=== PATIENT | male | born 1985 | race Caucasian/White ===

== ENCOUNTER 2017-06-29 14:11 | Emergency (ER) | payer MEDICAID ==
[~2017-06-29] VITALS: Ht 182.9 cm; Wt 80.0 kg
[~2017-06-29 14:11] MED LIST: BENZ100 PO; ZITH250T PO
[2017-06-29] MEDS ORDERED: IOHEXOL 350 MG/ML 10 ML VIAL (for RAD DIAG) IVCONTRAST ONE (14:12)
[2017-06-29 14:13] VITALS: BP 153/87; PULSE 87; RESP 16; TEMP 98.2; O2SAT 98
--- NOTE | 2017-06-29 14:23 | PD ---
Physical Exam Date Seen by Provider: Jun 29, 2017 Time Seen by Provider: 14:21 Narrative Pt presents c/o bilateral rib and flank pain for the last 2 weeks. No pain with respirations. VSS, awaiting bed placement. Data Data Last Documented VS Vital Signs Date Time Temp Pulse Resp B/P (MAP) Pulse Ox O2 Delivery O2 Flow Rate FiO2 06/29/17 14:13 98.2 87 16 153/87 (109) 98 MDM Supervised Visit with FRANCISCO: Tayler Wade Jun 29, 2017 14:23
--- NOTE | 2017-06-29 14:36 | PD ---
HPI . generalized abdominal pain/back pain Chief Complaint: Flank/Kidney Pain Time Seen by Provider: 14:25 Travel History International Travel<30 days: No Contact w/Intl Traveler<30days: No Traveled to known affect area: No History of Present Illness HPI 31- year old male presents to the ED complaining of right sided and left sided abdominal pain that radiates to his lower back for the past two weeks. The patient reports that his pain is worse on the right side than his left. The patient reports that he has chronic headaches and has been taking Ibuprofen, but reports that the ibuprofen has not helped with the abdominal pain. He reports the pain is worse with movement, and that eating does not affect his pain. He denies any nausea, vomiting, or diarrhea. The patient currently rates his pain as a 0/10. On exam he is pointing to his back. He says he thinks the pain is deep within his abdomen. PFSH Past Medical History High Cholesterol: Yes Diminished Hearing: No Immunizations Current: Yes Past Surgical History Tonsillectomy: Yes ("T&A") Social History Alcohol Use: Yes (OCCASIONALLY) Tobacco Use: No Substance Use: No Allergies-Medications (Allergen,Severity, Reaction): Coded Allergies: No Known Allergies (Verified , 06/29/17) Reported Meds & Prescriptions Reported Meds & Active Scripts Active No Active Prescriptions or Reported Medications Review of Systems General / Constitutional: No: Fever, Chills, Weight Gain, Weight Loss, Other Eyes: No: Diploplia, Blurred Vision, Photophobia, Drainage, Redness, Foreign Body Sensation, Pain, Tearing, Blind Spots, Visual changes, Blindness, Other HENT: Positive: Headaches, No: Vertigo, Lightheadedness, Sore Throat, Rhinitis , Rhinorrhea, Congestion, Nosebleed, Neck Stiffness, Neck Pain, Masses, Gingival Bleeding, Dental Difficulties, Ear Discharge, Earache, Other Cardiovascular: No: Chest Pain or Discomfort, Palpitations, Irregular Rhythm, Tachycardia, Diaphoresis, Syncope, Dyspnea on exertion, Varicosities, Edema, Cyanosis, Varicosities, Phlebitis, Claudication, Other Respiratory: No: Cough, Shortness of Breath, Wheezing, Sneezing, Orthopnea, Hemoptysis, Stridor, Night Sweats, Pleuritic Pain, Other Gastrointestinal: Positive: Abdominal Pain, No: Nausea, Vomiting, Diarrhea, Hematemesis, Hematochezia, Constipation, Changes in Bowel Habits, Indigestion, Dysphagia, Loss of Appetite, Other Genitourinary: Positive: Flank Pain, No: Urgency, Frequency, Dysuria, Nocturia , Hematuria, Decreased Urinary Output, Oliguria, Hesitancy, Dribbling, Incontinence, Pelvic Pain, Dyspareunia, Discharge, Dysmenorrhea, Menorrhagia, Metorrhagia, Vaginal Bleeding, Other Musculoskeletal: No: Myalgias, Arthralgias, Limited ROM, Weakness, Cramping, Edema, Pain, Atrophy, Other Skin: No Rash, No Itching, No Dryness, No Lumps, No Hives, No Change in Pigmentation, No Change in nails, No Alopecia, No Lesions, No Breast Lumps, No Breast Tenderness, No Breast Swelling, No Other Neurologic: No: Weakness, Dizziness, Syncope, Focal Abnormalities, Coordination Problem, Tremor, Ataxia, Headache, Change in Mentation, Slurred Speech, Paresthesia, Incontinence, Seizures, Sensory Disturbance, Other Psychiatric: No: Anxiety, Depression, Suicidal Ideations, Disorder of Thought, Mood Disorder, Substance Abuse, Homicidal Ideation, Other Endocrine: No: Heat Intolerance, Cold Intolerance, Polyuria, Polydipsia, Other Hematologic/Lymphatic: No: Easy Bruising, Lymph Node Enlargement, Other Physical Exam Narrative GENERAL: AAO x3. NAD. SKIN: Warm and dry. HEAD: Atraumatic. Normocephalic. EYES: Pupils equal and round. No scleral icterus. No injection or drainage. ENT: No nasal bleeding or discharge. Mucous membranes pink and moist. NECK: Trachea midline. No JVD. CARDIOVASCULAR: Regular rate and rhythm. RESPIRATORY: No accessory muscle use. Clear to auscultation. Breath sounds equal bilaterally. GASTROINTESTINAL: Abdomen soft, tenderness in RUQ and epigastric area. No rebound tenderness or guarding. NO CVA tenderness MUSCULOSKELETAL: Extremities without clubbing, cyanosis, or edema. No obvious deformities. NEUROLOGICAL: Awake and alert. No obvious cranial nerve deficits. Motor grossly within normal limits. Five out of 5 muscle strength in the arms and legs. Normal speech. PSYCHIATRIC: Appropriate mood and affect; insight and judgment normal. Data Data Last Documented VS Vital Signs Date Time Temp Pulse Resp B/P (MAP) Pulse Ox O2 Delivery O2 Flow Rate FiO2 06/29/17 14:44 98 Room Air 06/29/17 14:13 98.2 87 16 Orders Orders Complete Blood Count With Diff (06/29/17 14:42) Comprehensive Metabolic Panel (06/29/17 14:42) Lipase (06/29/17 14:42) Ct Abd/Pel W Iv Contrast(Rout) (06/29/17 14:42) Iv Access Insert/Monitor (06/29/17 14:42) Ecg Monitoring (06/29/17 14:42) Oximetry (06/29/17 14:42) Sodium Chloride 0.9% Flush (Ns Flush) (06/29/17 14:45) Iohexol 350 Inj (Omnipaque 350 Inj) (06/29/17 14:12) Labs Laboratory Tests Test 06/29/17 15:00 White Blood Count 7.4 TH/MM3 Red Blood Count 4.96 MIL/MM3 Hemoglobin 15.0 GM/DL Hematocrit 43.2 % Mean Corpuscular Volume 87.1 FL Mean Corpuscular Hemoglobin 30.2 PG Mean Corpuscular Hemoglobin Concent 34.7 % Red Cell Distribution Width 12.6 % Platelet Count 261 TH/MM3 Mean Platelet Volume 7.9 FL Neutrophils (%) (Auto) 47.8 % Lymphocytes (%) (Auto) 41.4 % Monocytes (%) (Auto) 7.2 % Eosinophils (%) (Auto) 3.2 % Basophils (%) (Auto) 0.4 % Neutrophils # (Auto) 3.5 TH/MM3 Lymphocytes # (Auto) 3.1 TH/MM3 Monocytes # (Auto) 0.5 TH/MM3 Eosinophils # (Auto) 0.2 TH/MM3 Basophils # (Auto) 0.0 TH/MM3 CBC Comment DIFF FINAL Differential Comment Blood Urea Nitrogen 12 MG/DL Creatinine 0.83 MG/DL Random Glucose 87 MG/DL Total Protein 7.2 GM/DL Albumin 3.9 GM/DL Calcium Level 8.6 MG/DL Alkaline Phosphatase 45 U/L Aspartate Amino Transf (AST/SGOT) 20 U/L Alanine Aminotransferase (ALT/SGPT) 36 U/L Total Bilirubin 0.3 MG/DL Sodium Level 139 MEQ/L Potassium Level 4.0 MEQ/L Chloride Level 104 MEQ/L Carbon Dioxide Level 30.4 MEQ/L Anion Gap 5 MEQ/L Estimat Glomerular Filtration Rate 107 ML/MIN Lipase 171 U/L [facility] Medical Decision Making Medical Screen Exam Complete: Yes Emergency Medical Condition: Yes Medical Record Reviewed: Yes Differential Diagnosis Diverticulitis, Pancreatitis, Gastritis, Cholecystitis, Cholelithiasis, UTI, Pyelonephritis Narrative Course 31-year-old male here with complaints of generalized abdominal pain. Labs have been ordered. CT scan of abdomen and pelvis ordered. He currently has no pain, nausea or vomiting. Laboratory Tests Test 06/29/17 15:00 White Blood Count 7.4 TH/MM3 Red Blood Count 4.96 MIL/MM3 Hemoglobin 15.0 GM/DL Hematocrit 43.2 % Mean Corpuscular Volume 87.1 FL Mean Corpuscular Hemoglobin 30.2 PG Mean Corpuscular Hemoglobin Concent 34.7 % Red Cell Distribution Width 12.6 % Platelet Count 261 TH/MM3 Mean Platelet Volume 7.9 FL Neutrophils (%) (Auto) 47.8 % Lymphocytes (%) (Auto) 41.4 % Monocytes (%) (Auto) 7.2 % Eosinophils (%) (Auto) 3.2 % Basophils (%) (Auto) 0.4 % Neutrophils # (Auto) 3.5 TH/MM3 Lymphocytes # (Auto) 3.1 TH/MM3 Monocytes # (Auto) 0.5 TH/MM3 Eosinophils # (Auto) 0.2 TH/MM3 Basophils # (Auto) 0.0 TH/MM3 CBC Comment DIFF FINAL Differential Comment Blood Urea Nitrogen 12 MG/DL Creatinine 0.83 MG/DL Random Glucose 87 MG/DL Total Protein 7.2 GM/DL Albumin 3.9 GM/DL Calcium Level 8.6 MG/DL Alkaline Phosphatase 45 U/L Aspartate Amino Transf (AST/SGOT) 20 U/L Alanine Aminotransferase (ALT/SGPT) 36 U/L Total Bilirubin 0.3 MG/DL Sodium Level 139 MEQ/L Potassium Level 4.0 MEQ/L Chloride Level 104 MEQ/L Carbon Dioxide Level 30.4 MEQ/L Anion Gap 5 MEQ/L Estimat Glomerular Filtration Rate 107 ML/MIN Lipase 171 U/L Laboratory Tests Test 06/29/17 15:00 White Blood Count 7.4 TH/MM3 Red Blood Count 4.96 MIL/MM3 Hemoglobin 15.0 GM/DL Hematocrit 43.2 % Mean Corpuscular Volume 87.1 FL Mean Corpuscular Hemoglobin 30.2 PG Mean Corpuscular Hemoglobin Concent 34.7 % Red Cell Distribution Width 12.6 % Platelet Count 261 TH/MM3 Mean Platelet Volume 7.9 FL Neutrophils (%) (Auto) 47.8 % Lymphocytes (%) (Auto) 41.4 % Monocytes (%) (Auto) 7.2 % Eosinophils (%) (Auto) 3.2 % Basophils (%) (Auto) 0.4 % Neutrophils # (Auto) 3.5 TH/MM3 Lymphocytes # (Auto) 3.1 TH/MM3 Monocytes # (Auto) 0.5 TH/MM3 Eosinophils # (Auto) 0.2 TH/MM3 Basophils # (Auto) 0.0 TH/MM3 CBC Comment DIFF FINAL Differential Comment Blood Urea Nitrogen 12 MG/DL Creatinine 0.83 MG/DL Random Glucose 87 MG/DL Total Protein 7.2 GM/DL Albumin 3.9 GM/DL Calcium Level 8.6 MG/DL Alkaline Phosphatase 45 U/L Aspartate Amino Transf (AST/SGOT) 20 U/L Alanine Aminotransferase (ALT/SGPT) 36 U/L Total Bilirubin 0.3 MG/DL Sodium Level 139 MEQ/L Potassium Level 4.0 MEQ/L Chloride Level 104 MEQ/L Carbon Dioxide Level 30.4 MEQ/L Anion Gap 5 MEQ/L Estimat Glomerular Filtration Rate 107 ML/MIN Lipase 171 U/L CT scan unremarkable. Patient's pain may be coming from his back and possible pulled muscles. I do not suspect an acute abdomen or need for further workup. I discussed all the results with patient. He was understanding. I recommend outpatient follow-up. Patient verbalized understanding of instructions, questions were answered, and thanked me for their care. I advised them if their condition worsens, please return to the nearest emergency room for further care. Diagnosis Primary Impression: Abdominal discomfort Additional Impression: Back pain Qualified Codes: M54.6 - Pain in thoracic spine Patient Instructions: General Instructions Additional Instructions: Please return to emergency department if your symptoms return or worsen. Follow up with your primary care provider. Try [id number] Tylenol or Motrin as needed for pain. Med/Other Pt SpecificInfo: No Change to Meds Scripts No Active Prescriptions or Reported Meds Disposition: 01 DISCHARGE HOME Condition: Stable Nikki Foster Jun 29, 2017 14:36
[2017-06-29 14:44] VITALS: O2SAT 98
[2017-06-29] MEDS ORDERED: SODIUM CHLORIDE 0.9% FLUSH 10 ML FLUSH IV FLUSH PRN (14:45)
[2017-06-29 15:33] LABS: AUTOMATED NEUTROPHIL # 3.5 TH/MM3 (1.8-7.7); BASOPHIL % 0.4 % (0.0-2.0); EOSINOPHIL # 0.2 TH/MM3 (0-0.4); EOSINOPHIL % 3.2 % (0.0-4.0); HEMATOCRIT 43.2 % (39.0-51.0); HEMO FLAGS DIFF FINAL; LYMPH % 41.4 % (9.0-44.0); LYMPHOCYTE # 3.1 TH/MM3 (1.0-4.8); MEAN CELL VOLUME 87.1 FL (80.0-100.0); MEAN CORPUSCULAR HEMOGLOBIN 30.2 PG (27.0-34.0); MEAN CORPUSCULAR HGB CONC 34.7 % (32.0-36.0); MONO % 7.2 % (0.0-8.0); NEUT % 47.8 % (16.0-70.0); PLATELET COUNT 261 TH/MM3 (150-450); RED BLOOD COUNT 4.96 MIL/MM3 (4.50-5.90); RED CELL DISTRIBUTION WIDTH 12.6 % (11.6-17.2); WHITE BLOOD COUNT 7.4 TH/MM3 (4.0-11.0)
[2017-06-29 15:51] LABS: ALKALINE PHOSPHATASE 45 U/L (45-117); TOTAL BILIRUBIN ADULT 0.3 MG/DL (0.2-1.0)
[2017-06-29 15:53] LABS: ALT (GPT) 36 U/L (12-78); ANION GAP 5 MEQ/L (5-15); AST (GOT) 20 U/L (15-37); BICARBONATE 30.4 MEQ/L (21.0-32.0); BLOOD UREA NITROGEN 12 MG/DL (7-18); CHLORIDE 104 MEQ/L (98-107); GLOMERULAR FILTRATION RATE 107 ML/MIN (>89); SODIUM (NA) 139 MEQ/L (136-145)
--- NOTE | 2017-06-29 17:41 | RADRPT ---
EXAM DATE/TIME: 06/29/2017 17:04 [facility] COMPARISON: CT ABDOMEN & PELVIS W CONTRAST, September 30, 2013, 10:32. INDICATIONS : Bilateral upper quadrant pain for two weeks. IV CONTRAST: 71 cc Omnipaque 350 (iohexol) IV ORAL CONTRAST: No oral contrast ingested. RADIATION DOSE: 9.96 CTDIvol (mGy) MEDICAL HISTORY : None SURGICAL HISTORY : None. ENCOUNTER: Initial ACUITY: 1 day PAIN SCALE: 4/10 LOCATION: Bilateral Abdomen TECHNIQUE: Volumetric scanning of the abdomen and pelvis was performed. Using automated exposure control and ad justment of the mA and/or kV according to patient size, radiation dose was kept as low as reasonably achievable to obtain optimal diagnostic quality images. DICOM format image data is available electro nically for review and comparison. FINDINGS: LOWER LUNGS: The visualized lower lungs are clear. LIVER: Homogeneous density without lesion. There is no dilation of the biliary tree. No calcified gallston es. SPLEEN: Normal size without lesion. PANCREAS: Within normal limits. KIDNEYS: Normal in size and shape. There is no mass, stone or hydronephrosis. ADRENAL GLANDS: Within normal limits. VASCULAR: There is no aortic aneurysm. BOWEL/MESENTERY: The stomach, small bowel, and colon demonstrate no acute abnormality. There is no free intraperitone al air or fluid. ABDOMINAL WALL: Within normal limits. RETROPERITONEUM: There is no lymphadenopathy. BLADDER: No wall thickening or mass. REPRODUCTIVE: Within normal limits. INGUINAL: There is no lymphadenopathy or hernia. MUSCULOSKELETAL: Within normal limits for patient age. CONCLUSION: Negative, I do not see an etiology for patient's abdominal pain. Wilmer Rizvi MD FACR on June 29, 2017 at 17:38 Board Certified Radiologist. This report was verified electronically.
[2017-06-29 17:54] VITALS: BP 114/76; PULSE 77; RESP 18; O2SAT 96
== END 2017-06-29 18:06 | disposition home or self-care (01) ==
LOC: NEPD 14:11
DX: R10.9 Unspecified abdominal pain (principal); M54.6 Pain in thoracic spine; M54.5 Low back pain; R51 Headache; E78.00 Pure hypercholesterolemia, unspecified
CPT/HCPCS: 74177; 80053; 83690; 85025; 99285; Q9967

== ENCOUNTER 2017-11-25 18:09 | Emergency (ER) | payer SELFPAY ==
[~2017-11-25] VITALS: Ht 182.9 cm; Wt 86.4 kg
[2017-11-25 18:10] VITALS: BP 132/84; PULSE 93; RESP 14; TEMP 98.1; O2SAT 97
[2017-11-25] MEDS ORDERED: PERM5CRE11 TOPICAL (18:36)
--- NOTE | 2017-11-25 18:37 | PD ---
HPI Chief Complaint: Skin Problem Time Seen by Provider: 18:31 Travel History International Travel<30 days: No Contact w/Intl Traveler<30days: No Traveled to known affect area: No History of Present Illness HPI 32-year-old male presents to the emergency department complaining of an itchy rash to bilateral hands and forearms since Thursday. Started out as a few areas and has worsened. Help a friend move a couch this past weekend and he said it looked dirty. Denies new exposures to lotions, soaps, detergents, medications, foods, perfumes. Denies airway edema, tongue swelling, shortness of breath, difficulty breathing. Denies fever, vomiting. Has tried topical hydrocortisone, Benadryl, other allergy medications to help alleviate symptoms. No known aggravating or relieving factors. No known allergies. No primary care provider. Denies significant past medical history. Has no other medical complaints. No other modifying factors or associated signs and symptoms. PFSH Past Medical History High Cholesterol: Yes Diminished Hearing: No Immunizations Current: Yes Past Surgical History Tonsillectomy: Yes ("T&A") Social History Alcohol Use: Yes (OCCASIONALLY) Tobacco Use: Yes (1 ppd) Substance Use: Yes ([place]) Allergies-Medications (Allergen,Severity, Reaction): Coded Allergies: No Known Allergies (Verified , 06/29/17) Reported Meds & Prescriptions Reported Meds & Active Scripts Active Elimite Topical (Permethrin) 5% Cream 1 Applic TOPICAL ONCE Review of Systems Except as stated in HPI: all other systems reviewed are Neg Physical Exam Narrative GENERAL: Well-nourished, well-developed male patient, in no acute distress SKIN: Warm and dry. Generalized erythremic pimple-like rash to bilateral hands and forearms, webs of the fingers of both hands; some areas appear excoriated. No areas with cellulitic process noted. HEAD: Atraumatic. Normocephalic. EYES: Pupils equal and round. No scleral icterus. No injection or drainage. ENT: Mucosa pink and moist. Airway patent. NECK: Trachea midline. CARDIOVASCULAR: Regular rate. RESPIRATORY: No accessory muscle use. GASTROINTESTINAL: Flat. MUSCULOSKELETAL: No obvious deformities. No clubbing. No cyanosis. No edema. NEUROLOGICAL: Awake and alert. Oriented 3. No obvious cranial nerve deficits. Motor grossly within normal limits. Normal speech. PSYCHIATRIC: Appropriate mood and affect; insight and judgment normal. Data Data Last Documented VS Vital Signs Date Time Temp Pulse Resp B/P (MAP) Pulse Ox O2 Delivery O2 Flow Rate FiO2 11/25/17 18:10 98.1 93 14 132/84 (100) 97 Orders Orders Ed Discharge Order (11/25/17 18:37) MDM Medical Decision Making Medical Screen Exam Complete: Yes Emergency Medical Condition: Yes Medical Record Reviewed: Yes Differential Diagnosis Scabies, contact dermatitis, nonspecific rash Narrative Course 32-year-old male with scabies-appearing rash to bilateral hands and forearms. He is afebrile and nontoxic-appearing. Denies fever, vomiting. Elimite cream prescribed for home. Instructed patient to follow up with primary care provider. Patient verbalizes understanding and agreement with treatment plan. Patient is medically cleared and stable for discharge. Discussed reasons to return to the emergency department. Patient agrees with treatment plan. The patients vital signs are stable and the patient is stable for outpatient follow- up and treatment. Patient discharged home, stable and in no acute distress. Diagnosis Primary Impression: Rash and nonspecific skin eruption Referrals: [facility] Primary Care Physician Patient Instructions: Acute Rash (ED), General Instructions, Scabies (ED) Departure Forms: Tests/Procedures, Work Release Enter return to work date: Nov 27, 2017 Additional Instructions: Elimite cream as directed; repeat in one week as needed Soaking in cool water or apply cool, wet washcloths to irritated areas to minimize itching Apply anti-itch creams, such as calamine lotion, to relieve pain and itching as needed [id number] antihistamines as needed and as directed to relieve allergic symptoms caused by scabies Wash all pillows, linens, blankets, etc. in hot water and dry in hot dryer Bag and all unwashable linens, [place] [employer] stuffed animals, etc. in a tightly sealed garbage bag for up to 2 weeks Follow-up with software release manager Follow-up with primary care provider Return to the emergency department immediately with worsening of symptoms Med/Other Pt SpecificInfo: Prescription(s) given Scripts Permethrin Topical (Elimite Topical) 5% Cream 1 APPLIC TOPICAL ONCE for Scabies, #1 TUBE 1 Refill Prov: Cecy Amezcua 11/25/17 Disposition: 01 DISCHARGE HOME Condition: Stable Cecy Amezcua Nov 25, 2017 18:37
== END 2017-11-25 18:50 | disposition home or self-care (01) ==
LOC: NEPK 18:09
DX: R21 Rash and other nonspecific skin eruption (principal); E78.00 Pure hypercholesterolemia, unspecified; F17.200 Nicotine dependence, unspecified, uncomplicated
CPT/HCPCS: 99283

== ENCOUNTER 2017-12-05 17:19 | Emergency (ER) | payer MEDICAID ==
[~2017-12-05] VITALS: Ht 182.9 cm; Wt 88.2 kg
[~2017-12-05 17:19] MED LIST changes: -BENZ100 PO; +PERM5CRE11 TOPICAL; -ZITH250T PO
[2017-12-05 17:45] VITALS: BP 135/84; PULSE 85; RESP 16; TEMP 98.3; O2SAT 98
[2017-12-05] MEDS ORDERED: PRED20 PO (18:46)
--- NOTE | 2017-12-05 18:46 | PD ---
HPI Chief Complaint: Skin Problem Time Seen by Provider: 18:24 Travel History International Travel<30 days: No Contact w/Intl Traveler<30days: No Traveled to known affect area: No History of Present Illness HPI This is a 32-year-old female with a rash primarily localized to his upper extremities present for approximately one month. He was previously treated for scabies with Elimite cream. He reports no improvement of rash after using the Elimite cream. He reports the rash is changed appearance and has become dry flaky skin across his hands and elbows. He denies fever or chills. No shortness of breath. No oral swelling or difficulty swallowing. Severity is mild to moderate. No aggravating factors. Symptoms improved with Claritin. PFSH Past Medical History Medical History: Denies Significant Hx High Cholesterol: Yes Diminished Hearing: No Immunizations Current: Yes Tetanus Vaccination: Unknown ?: Not Past Surgical History Tonsillectomy: Yes ("T&A") Social History Alcohol Use: Yes (OCCASIONALLY) Tobacco Use: Yes (1 ppd) Substance Use: Yes ([facility]) Allergies-Medications (Allergen,Severity, Reaction): Coded Allergies: No Known Allergies (Verified Adverse Reaction, Unknown, 12/05/17) Reported Meds & Prescriptions Reported Meds & Active Scripts Active Prednisone 20 Mg Tab 40 Mg PO DAILY Take 40 mg (2 tablets) daily for 5 days Elimite Topical (Permethrin) 5% Cream 1 Applic TOPICAL ONCE Review of Systems Except as stated in HPI: all other systems reviewed are Neg General / Constitutional: No: Fever Eyes: No: Visual changes HENT: No: Headaches Cardiovascular: No: Chest Pain or Discomfort Respiratory: No: Shortness of Breath Gastrointestinal: No: Abdominal Pain Genitourinary: No: Dysuria Musculoskeletal: No: Pain Skin: Positive Rash Physical Exam Narrative GENERAL: Alert and well-appearing 32-year-old male SKIN: Warm and dry. 2 different appearing rashes. One appears to be eczema the other is a blanchable flat erythematous rash in circular lesions. Eczematous rash to both hands dorsal aspect. HEAD: Normocephalic. EYES: No injection or drainage. Ear/nose/throat: No pharyngeal erythema or oral airway swelling. NECK: Supple. No JVD or lymphadenopathy. CARDIOVASCULAR: Regular rate and rhythm RESPIRATORY: Breath sounds equal bilaterally. No accessory muscle use. No wheezing. GASTROINTESTINAL: Abdomen soft, non-tender, nondistended. MUSCULOSKELETAL: No cyanosis, or edema. BACK: Nontender without obvious deformity. No CVA tenderness. Data Data Last Documented VS Vital Signs Date Time Temp Pulse Resp B/P (MAP) Pulse Ox O2 Delivery O2 Flow Rate FiO2 12/05/17 17:45 98.3 85 16 135/84 (101) 98 MDM Medical Decision Making Medical Screen Exam Complete: Yes Emergency Medical Condition: Yes Differential Diagnosis Eczema, contact dermatitis, other Narrative Course This is a 32-year-old male here with an eczema-like rash to his upper extremities. Patient was previously treated for scabies with Elimite. He reports no improvement after using Elimite. The rash is eczema appearing on the hands. He'll be treated with five-day course of steroids. Instructed to continue with the nonsedating antihistamines. Diagnosis Primary Impression: Rash and other nonspecific skin eruption Referrals: Primary Care Physician Additional Instructions: Steroids as directed. Continue Claritin. Follow-up with dermatology Scripts Prednisone (Prednisone) 20 Mg Tab 40 MG PO DAILY, #10 TAB 0 Refills Take 40 mg (2 tablets) daily for 5 days Prov: Kathe Tong 12/05/17 Disposition: 01 DISCHARGE HOME Condition: Stable Kathe Tong Dec 05, 2017 18:46
== END 2017-12-05 18:56 | disposition home or self-care (01) ==
LOC: PHEFT 17:19
DX: R21 Rash and other nonspecific skin eruption (principal); E78.00 Pure hypercholesterolemia, unspecified; F17.200 Nicotine dependence, unspecified, uncomplicated; Z79.899 Other long term (current) drug therapy
CPT/HCPCS: 99283

== ENCOUNTER 2018-02-18 11:12 | Emergency (ER) | payer MEDICAID ==
[~2018-02-18 11:12] MED LIST changes: +PRED20 PO
[2018-02-18 11:30] VITALS: BP 148/86; PULSE 70; RESP 14; TEMP 98.6; O2SAT 99
--- NOTE | 2018-02-18 11:45 | PD ---
HPI Chief Complaint: GI Complaint Time Seen by Provider: 11:34 Travel History International Travel<30 days: No Contact w/Intl Traveler<30days: No Traveled to known affect area: No History of Present Illness HPI Patient complains of 3 days worth of urinary frequency, urgency and dysuria. Is also had suprapubic pressure sensation as well as sharp nonradiating pain PFSH Past Medical History High Cholesterol: Yes Diminished Hearing: No Immunizations Current: Yes Past Surgical History Tonsillectomy: Yes ("T&A") Social History Alcohol Use: Yes (OCCASIONALLY) Tobacco Use: Yes (1 ppd) [facility] Allergies-Medications (Allergen,Severity, Reaction): Coded Allergies: No Known Allergies (Verified Adverse Reaction, Unknown, 02/18/18) Reported Meds & Prescriptions Reported Meds & Active Scripts Active Prednisone 20 Mg Tab 40 Mg PO DAILY Take 40 mg (2 tablets) daily for 5 days Elimite Topical (Permethrin) 5% Cream 1 Applic TOPICAL ONCE Review of Systems General / Constitutional: No: Fever Eyes: No: Visual changes HENT: No: Headaches Cardiovascular: No: Chest Pain or Discomfort Respiratory: No: Shortness of Breath Gastrointestinal: No: Abdominal Pain Genitourinary: Positive: Urgency, Frequency, Dysuria Musculoskeletal: No: Pain Skin: No Rash Neurologic: No: Weakness Psychiatric: No: Depression Endocrine: No: Polydipsia Hematologic/Lymphatic: No: Easy Bruising Physical Exam Narrative GENERAL: SKIN: Warm and dry. HEAD: Atraumatic. Normocephalic. EYES: Pupils equal and round. No scleral icterus. No injection or drainage. ENT: No nasal bleeding or discharge. Mucous membranes pink and moist. NECK: Trachea midline. No JVD. CARDIOVASCULAR: Regular rate and rhythm. RESPIRATORY: No accessory muscle use. Clear to auscultation. Breath sounds equal bilaterally. GASTROINTESTINAL: Abdomen soft, non-tender, nondistended. MUSCULOSKELETAL: Extremities without clubbing, cyanosis, or edema. No obvious deformities. NEUROLOGICAL: Awake and alert. No obvious cranial nerve deficits. Motor grossly within normal limits. Five out of 5 muscle strength in the arms and legs. Normal speech. PSYCHIATRIC: Appropriate mood and affect; insight and judgment normal. Data Data Last Documented VS Vital Signs Date Time Temp Pulse Resp B/P (MAP) Pulse Ox O2 Delivery O2 Flow Rate FiO2 02/18/18 11:30 98.6 70 14 148/86 (106) 99 Orders Orders Urinalysis - C+S If Indicated (02/18/18 11:50) Ct Abd/Pel W/O Iv Contrast (02/18/18 11:50) Labs Laboratory Tests Test 02/18/18 11:57 Urine Color YELLOW Urine Turbidity CLEAR Urine pH 6.0 Urine Specific [place] 1.018 Urine Protein NEG mg/dL Urine Glucose (UA) NEG mg/dL Urine Ketones NEG mg/dL Urine Occult Blood TRACE Urine Nitrite NEG Urine Bilirubin NEG Urine Urobilinogen LESS THAN 2.0 MG/DL Urine Leukocyte Esterase NEG Urine RBC 5 /hpf Urine WBC LESS THAN 1 /hpf Urine Bacteria OCC /hpf Urine Mucus FEW /lpf Microscopic Urinalysis Comment CULT NOT INDICATED MDM Medical Decision Making Medical Screen Exam Complete: Yes Emergency Medical Condition: Yes Medical Record Reviewed: Yes Differential Diagnosis UTI versus prostatitis versus urethritis versus sigmoid colitis versus sigmoid diverticulitis versus atypical appendicitis Narrative Course Patient CT was negative for any appendicitis any kidney stones or any evidence of colitis/diverticulitis UA was suggestive of a UTI Diagnosis Primary Impression: Urethritis Additional Impression: UTI Patient Instructions: General Instructions, Urinary Tract Infection in Men (ED) Scripts Naproxen DR (Naproxen EC) 375 Mg Tabdr 375 MG PO BID, #12 TAB 0 Refills Prov: Jose Sood MD 02/18/18 Ciprofloxacin (Cipro) 500 Mg Tab 500 MG PO BID for Infection for 7 Days, #14 TAB 0 Refills Prov: Jose Sood MD 02/18/18 Disposition: 01 DISCHARGE HOME Condition: Stable Jose Sood MD Feb 18, 2018 11:45
[2018-02-18 12:15] LABS: BACTERIA, URINE OCC /hpf; BILIRUBIN, URINE NEG (NEG); BLOOD, URINE TRACE (NEG); GLUCOSE,URINE NEG (NEG); KETONE, URINE NEG (NEG); MUCUS URINE FEW /lpf (OCC); NITRITE,URINE NEG (NEG); URINE COLOR YELLOW (YELLW/STRAW); URINE LEUKOCYTE ESTERASE NEG (NEG)
--- NOTE | 2018-02-18 12:37 | RADRPT ---
EXAM DATE/TIME: 02/18/2018 12:13 [place] COMPARISON: No previous studies available for comparison. INDICATIONS : Suprapubic pain intermittently. ORAL CONTRAST: No oral contrast ingested. RADIATION DOSE: 9.02 CTDIvol (mGy) MEDICAL HISTORY : None SURGICAL HISTORY : None. ENCOUNTER: Initial ACUITY: 1 week PAIN SCALE: 4/10 LOCATION: abdomen TECHNIQUE: Volumetric scanning of the abdomen and pelvis was performed. Using automated exposure control and ad justment of the mA and/or kV according to patient size, radiation dose was kept as low as reasonably achievable to obtain optimal diagnostic quality images. DICOM format image data is available electro nically for review and comparison. FINDINGS: LOWER LUNGS: The visualized lower lungs are clear. LIVER: Homogeneous density without lesion. There is no dilation of the biliary tree. No calcified gallston es. SPLEEN: Normal size without lesion. PANCREAS: Within normal limits. KIDNEYS: Normal in size and shape. There is no mass, stone, or hydronephrosis. ADRENAL GLANDS: Within normal limits. VASCULAR: There is no aortic aneurysm. BOWEL/MESENTERY: The stomach, small bowel, and colon demonstrate no acute abnormality. There is no free intraperitone al air or fluid. ABDOMINAL WALL: Within normal limits. RETROPERITONEUM: There is no lymphadenopathy. BLADDER: No wall thickening or mass. REPRODUCTIVE: Within normal limits. INGUINAL: There is no lymphadenopathy or hernia. MUSCULOSKELETAL: Within normal limits for patient age. CONCLUSION: Negative exam. No etiology to explain patient's suprapubic discomfort. Shaheen Zamorano MD on February 18, 2018 at 12:23 Board Certified Radiologist. This report was verified electronically.
[2018-02-18] MEDS ORDERED: CIPR-9 PO (14:07)
[2018-02-18] MEDS ORDERED: NAPR375T4 PO (14:07)
[2018-02-18 14:17] VITALS: BP 146/82
== END 2018-02-18 14:18 | disposition home or self-care (01) ==
LOC: NEPD 11:12
DX: N34.2 Other urethritis (principal); N39.0 Urinary tract infection, site not specified; E78.00 Pure hypercholesterolemia, unspecified; F17.200 Nicotine dependence, unspecified, uncomplicated
CPT/HCPCS: 74176; 81001